=== PATIENT | male | born 1950 ===

== ENCOUNTER → 2018-05-07 19:13 | Outpatient (REF) | payer OTHER, SELFPAY ==
[2018-05-07 20:04] LABS: Alanine Aminotransferase 53 IU/L (21-72); Albumin 4.5 g/dL (3.5-5.0); Albumin Globulin Ratio 1.7 (1.0-2.8); Alkaline Phosphatase 51 U/L (38-126); Aspartate Aminotransferase 29 IU/L (17-59); Bilirubin Total 1.1 mg/dL (0.2-1.3); Blood Urea Nitrogen 18 mg/dL (9-20); Calcium 9.7 mg/dL (8.4-10.2); Carbon Dioxide 28 mmol/L (22-32); Chloride 101 mmol/L (98-107); Cholesterol 240 mg/dL (140-199); Estimated Glomerular Filt Rate > 60.0 mL/min (>60); Globulin 2.6 g/dL (1.7-4.1); Glucose 90 mg/dL (80-110); HDL Cholesterol 45 mg/dL (40-60); HEMOLYSIS < 15 (0-50); LDL Cholesterol Calculated 144 mg/dL (<100); Potassium 4.5 mmol/L (3.4-5.1); Sodium 138 mmol/L (137-145); Total Protein 7.1 g/dL (6.3-8.2); Triglycerides 256 mg/dL (35-150)
[2018-05-07 20:08] LABS: Add Manual Diff / Slide Review NO; Basophils Absolute Auto 0 /uL (0-100); Basophils Percent Auto 0.4 % (0-2); Eosinophils Absolute Auto 100 /uL (0-450); Eosinophils Percent Auto 1.3 % (2-4); Hemoglobin 15.8 g/dL (13.5-17.5); Lymphocytes Absolute Auto 1500 /uL (1100-4500); Lymphocytes Percent Auto 25.6 % (25-40); Mean Corpuscular HGB Conc 35.2 % (30-36); Mean Corpuscular Volume 88.1 fL (80-100); Monocytes Absolute Auto 300 /uL (0-900); Monocytes Percent Auto 5.9 % (3-14); Neutrophils Absolute Auto 3800 /uL (1500-7000); Neutrophils Percent Auto 66.8 % (50-75); Platelet Count 224 X10^3/uL (150-400); Red Blood Cell Count 5.11 X10^6/uL (4.5-5.9); Red Cell Distribution Width 12.9 % (11.6-14.8); White Blood Cell Count 5.7 X10^3/uL (4.5-11.0)
== END ==
LOC: LAB 19:13
PROVIDERS: Visit Provider Family Medicine Geriatric Medicine
DX: C61 Malignant neoplasm of prostate (principal); E78.5 Hyperlipidemia, unspecified
CPT/HCPCS: 36415; 80053; 80061; 84153; 85025

== ENCOUNTER 2022-02-23 10:12 | Day surgery (SDC) | payer MEDICARE, SELFPAY ==
[2022-02-23 11:52] VITALS: BP 158/80; PULSE 52; RESP 16; TEMP 36.3; O2SAT 99
[2022-02-23] MEDS: LACTATED RINGERS 1,000 ML 42 ML IV (11:52)
--- NOTE | 2022-02-23 14:39 | PM.HP.1 ---
History of Present Illness History of Present Illness Date Patient Seen: 02/23/22 Time Patient Seen: 14:39 Chief complaint: SDC Narrative: Anastacio is a 71-year-old man who is here for colonoscopy. He had 1 about 10 years ago with no polyps. No known family history of colon cancer. Patient History Family & Social History Social History: household members spouse Tobacco & Substance use: Smoking Status Former smoker alcohol intake current alcohol intake frequency 3 or more drinks per day Substance Use Type marijuana Meds Home Medications and Allergies Home Medications Medication Instructions Recorded Confirmed Type sodium sul 1.479 gram-potas ch See Rx Instructions PO PER PKG DIR 02/21/22 Rx 0.188 gram-magnes sul 0.225 gram #24 tabs tablet (Sutab) Allergies Allergy/AdvReac Type Severity Reaction Status Date / Time No Known Drug Allergies Allergy Verified 02/23/22 11:51 Exam Vital Signs (past 8 hours): - 02/23/22 11:52 Temperature 97.4 F L Pulse Rate 52 L Respiratory Rate 16 Blood Pressure 158/80 H Pulse Oximetry 99 Oxygen Delivery Method Room Air Oxygen Delivery Method Room Air Const General: healthy appearing Assessment & Plan Assessment and plan (1) Colon cancer screening: Status: Acute Plan We reviewed the risks and benefits of colonoscopy and he would like to proceed. Time Spent With Patient Critical Care time: I spent a total of [] minutes of critical care time on this patient's care today; this time is exclusive of procedural time.
--- NOTE | 2022-02-23 15:12 | P.OP.COLON_ITS ---
Operative Date/Time/Diagnoses Date of procedure: 02/23/22 Time of procedure: 15:12 Pre-op diagnosis: Colon cancer screening Post-op diagnosis: same Procedure & Clinicians Study performed: Colonoscopy Same procedure as scheduled: Yes Surgeon: Joe Bryson Procedure Notes Procedure in detail: Surgeon: Joe Bryson MD Anesthesia: Dr. Weiss Procedure: The patient was brought to the endoscopy suite, placed in left lateral decubitus position. The patient was connected to monitoring devices. A time-out was performed. Sedation was administered. Once the patient was adequately sedated, a digital rectal exam was performed and was normal except for a mildly enlarged prostate. The scope was then inserted and advanced to the cecum where the appendiceal orifice was identified and photographed. The scope was then slowly withdrawn over greater than 6 minutes. The mucosa was thorough ly inspected. No abnormalities were noted. The scope was retroflexed in the rectum. No abnormalities were noted. The scope was straightened and removed. The patient was awakened and brought to recovery. Scope withdrawal time: 8 Sedation time: 15 EBL: 0 Findings: Normal colon Post-procedure Recommendations: Colonoscopy in 10 years Disposition: PACU
[2022-02-23 15:14] VITALS: BP 86/63; PULSE 51; RESP 18; TEMP 36.2; O2SAT 96
[2022-02-23 15:20] VITALS: BP 97/68; PULSE 49; RESP 16; O2SAT 97
[2022-02-23 15:25] VITALS: BP 105/66; PULSE 47; RESP 16; O2SAT 97
[2022-02-23 15:31] VITALS: BP 119/76; PULSE 51; RESP 12; TEMP 36.2; O2SAT 99
[2022-02-23 15:52] VITALS: BP 156/81; PULSE 46; RESP 16; TEMP 36.4; O2SAT 99
--- NOTE | 2022-02-23 15:57 | SUR.PHASEII ---
Pt discharged to [facility] with . Plan to walk on [address] to [place]. Pt steady on his feet.
== END 2022-02-23 15:55 | disposition home or self-care (01) ==
PROVIDERS: PCP Nurse Practitioner Family; Referring Provider Surgery; Visit Provider Surgery
PROC: 0DJD8ZZ Inspection of Lower Intestinal Tract, Via Natural or Artificial Opening Endoscopic (ICD-10-PCS; CPT 45378; principal; 2022-02-23 13:00)
DX: Z12.11 Encounter for screening for malignant neoplasm of colon (principal)
CPT/HCPCS: G0121